=== PATIENT | female | born 1975 | race Caucasian/White ===

== ENCOUNTER 2019-09-19 10:04 | Day surgery (SDC) | payer OTHER ==
[2019-09-19] MEDS ORDERED: Ringers Lactate 1,000 ML IV ONE (10:22)
[2019-09-19] MEDS ORDERED: CEFAZOLIN/SWI 1gm 1 GM/10 ML SYR ONE (10:22)
[2019-09-19 10:27] LABS: Absolute Lymphocytes (CBC) 1.5 K/uL (0.7-4.9); Basophils % 1.8 % (0-1.3); MPV 7.9 fL (7.6-11.3); RBC Red Blood Cell Count 4.62 M/uL (3.86-4.86)
--- NOTE | 2019-09-19 10:40 | RAD REPORT ---
EXAM DESCRIPTION: RAD - Chest Single View - 09/19/2019 10:28 am CLINICAL HISTORY: PRE-OP THIS A.M., pending neck mass removal COMPARISON: September 2016 TECHNIQUE: AP portable chest image was obtained 09/19/2019 10:28 am . FINDINGS: Lung leiva are clear. Old shunt tubing overlies the right side of the chest. Heart and va sculature are normal. No measurable pleural effusion and no pneumothorax. No acute bony abnormality s een. No acute aortic findings suspected. IMPRESSION: No acute cardiopulmonary process. No significant change from comparison.
[2019-09-19 10:46] LABS: Potassium 3.6 mmol/L (3.5-5.1)
[2019-09-19] MEDS ORDERED: propofoL 200 MG/20 ML VIAL IV ONE (11:25)
[2019-09-19] MEDS ORDERED: LIDOCAINE 2% MPF 5 ML VIAL ONE (11:26)
[2019-09-19] MEDS ORDERED: FENTANYL CITR 100 MCG/2 ML ONE (11:26)
[2019-09-19] MEDS ORDERED: MIDAZOLAM HCL 2 MG/2 ML INJ ONE (11:26)
[2019-09-19] MEDS ORDERED: ONDANSETRON 4 MG/2 ML VIAL ONE (11:27)
[2019-09-19] MEDS ORDERED: KETOROLAC 30 MG/ML INJ ONE (12:11)
[2019-09-19 12:13] LABS: Anisocytosis 1+; Blood Morphology Comment NOTED (NOT SEEN); Hypochromasia 1+; Platelet Estimate ADEQ; Urine White Blood Cell Casts OK
[2019-09-19] MEDS ORDERED: EPHEDRINE SULF 50 MG/ML VIAL ONE (12:13)
[2019-09-19 13:25] VITALS: TEMP 97.1
[2019-09-19 13:46] VITALS: BP 117/69; O2SAT 98
--- NOTE | 2019-09-19 18:14 | EKG ---
Test Date: 2019-09-19 Test Time: 10:15:17 Field Instructor: MARISOL MEASUREMENT RESULTS: Intervals: Rate: 64 HI: 116 QRSD: 92 QT: 390 QTc: 402 Tie Siding: P: 62 HI: 116 QRS: 65 T: 46 INTERPRETIVE STATEMENTS: Normal sinus rhythm Normal ECG No previous ECG available for comparison Electronically Signed On 09-19-19 18:12:27 CDT by Jn Carrizales
--- NOTE | 2019-09-19 23:46 | OP ---
Date of Procedure: 09/19/2019 Surgeon: Cuate Avalos MD Preoperative Diagnosis: Inflamed mass, right neck. Postoperative Diagnosis: Inflamed mass, right neck. Procedure: Wide excision of right neck mass 8 x 4 cm with layered closure. Estimated Blood Loss: Minimal. Specimen: Culture and sensitivity of right neck mass, likely sebaceous cyst. Findings: As above. Anesthesia: General. Complications: None. Disposition: Patient tolerated the procedure in stable condition, taken to Recovery in good general condition. Procedure In Detail: Patient was brought to the OR and placed in supine position. General anesthesi a was begun. Patient placed in the left lateral position, prepped and draped in usual sterile fashio n. Marcaine 0.5% was infiltrated locally for postop pain control. 15 blade was used to make an 8 x 4 cm to excise this 3.5 cm raised inflamed red mass completely taken out in 1 piece and it opened at the table. Cultures done of the pus inside. Wound irrigated. Bleeding controlled with cautery. Fl aps created and quarter-inch Tree drain placed and secured with 3-0 nylon and 2-0 chromic used to approximate the subcutaneous tissue and 3-0 nylon used to loosely close the skin. Sterile dressing a pplied. Patient was awakened and taken to Recovery in good general condition. Discharge Note: Patient will go to day surgery and home when stable. Disposition: Home. Condition: Stable. Discharge Instructions: Resume home medications and diet. Activity as tolerated. No heavy lifting. Remove outer dressing in 2 days. Shower. Keep wound clean and dry. Dry gauze to wound daily. Fo llow up in my office in a week. Call for appointment. Tylenol No. 3 one tablet p.o. q.4 p.r.n. pain , Cipro 500 mg p.o. q.12. /MODL Voice ID: [id number] Report ID: [id number]
== END 2019-09-19 14:18 | disposition home or self-care (01) ==
LOC: OR 10:04
PROVIDERS: ATTEND Surgery
PROC: 0HB4XZZ Excision of Neck Skin, External Approach (ICD-10-PCS; principal; 2019-09-19 12:15)
DX: L72.0 Epidermal cyst (principal); Z11.59 Encounter for screening for other viral diseases
CPT/HCPCS: 93005; 87070; 85025; 80048; 36415; 87205; 81025; 88304; 87075; 71045; 11426; 12044; U0002; J2704; J2250; J3010; J0690; J7120; J2405; 88305

== ENCOUNTER 2019-11-29 11:27 | Emergency (ER) | payer OTHER ==
[2019-11-29] MEDS ORDERED: NA CHLORIDE 0.9% 500 ML ONE (12:21)
[2019-11-29 12:22] LABS: Absolute Lymphocytes (CBC) 1.5 K/uL (0.7-4.9); Basophils % 0.7 % (0-1.3); Hematocrit 30.9 % (36.0-45.0); Lymphocytes % 23.3 % (15.3-44.8); MPV 8.4 fL (7.6-11.3); RBC Red Blood Cell Count 4.35 M/uL (3.86-4.86)
[2019-11-29 12:46] LABS: ALT/SGPT 14 U/L (12-78); AST/SGOT 13 U/L (15-37); Albumin 3.5 g/dL (3.4-5.0); Alkaline Phosphatase 56 U/L (45-117); BUN Blood Urea Nitrogen 9 mg/dL (7-18); Bicarbonate 28 mmol/L (21-32); Bilirubin Direct < 0.1 mg/dL (0-0.2); Bilirubin Total 0.2 mg/dL (0.2-1.0); Glucose Level 88 mg/dL (74-106); Magnesium 2.2 mg/dL (1.8-2.4); NT PRO-BNP 105 pg/mL (<125); Potassium 4.2 mmol/L (3.5-5.1); Protein, Total 7.2 g/dL (6.4-8.2); Sodium Level 141 mmol/L (136-145); Troponin (Emerg Dept Use Only) < 0.02 ng/mL (0.0-0.045)
--- NOTE | 2019-11-29 12:47 | RAD REPORT ---
EXAM DESCRIPTION: CT - CTHCSPWOC - 11/29/2019 12:22 pm CLINICAL HISTORY: Trauma, head and neck injury. PAIN COMPARISON: No comparisons TECHNIQUE: Axial 5 mm thick images of the head were obtained. Axial 2 mm thick images of the cervical spine were obtained with sagittal and coronal reconstruction images generated and reviewed. All CT scans are performed using dose optimization technique as appropriate and may include automated exposure control or mA/KV adjustment according to patient size. FINDINGS: CT HEAD WITHOUT CONTRAST: No acute hemorrhage, hydrocephalus or extra-axial collection is identified.Mild generalized brain atr ophy is seen with areas gliosis in the right frontal lobe as well as the right temporal region.No are as of brain edema or midline shift. Ventriculostomy shunt tubing is is present both frontal regions, although neither shunt tube is seen to terminate in the ventricular system. The paranasal sinuses and mastoids are clear.The calvarium is intact. CT CERVICAL SPINE WITHOUT CONTRAST: No fracture or subluxation.Prominent degenerative changes seen mid and lower cervical spine, most not able at C4-5.No prevertebral soft tissues swelling is identified. IMPRESSION: No acute intracranial or cervical spine findings.
--- NOTE | 2019-11-29 12:50 | RAD REPORT ---
EXAM DESCRIPTION: RAD - Chest Single View - 11/29/2019 12:30 pm CLINICAL HISTORY: COUGH Chest pain. COMPARISON: Chest Single View dated 09/19/2019; Chest Pa And Lat (2 Views) dated 09/28/2016 FINDINGS: Portable technique limits examination quality. The lungs are grossly clear. The heart is normal in size. No displaced fractures.Right-sided shunt tu jessica is present. IMPRESSION: No acute intrathoracic process suspected.
[2019-11-29 13:08] LABS: Urine Blood TRACE (NEG); Urine Glucose NEGATIVE (NEG); Urine Protein NEGATIVE (NEG); Urine pH 7.5 (5.0-7.0)
[2019-11-29 13:10] LABS: Urine Bacteria NONE SEEN /HPF (<20); Urine Culture Reflex Order NOT NEEDED; Urine RBC <5 /HPF (NONE SEEN)
--- NOTE | 2019-11-29 13:53 | ER ---
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 Coronavirus screen: At this time, the client does not indicate any symptoms associated with coronavirus-19. Ebola Screen: Patient negative for fever greater than or equal to 101.5 degrees Fahrenheit, and additional compatible Ebola Virus Disease symptoms Patient denies exposure to infectious person. Patient denies travel to an Ebola-affected area in the 21 days before illness onset. No symptoms or risks identified at this time. Initial Sepsis Screen: Does the patient meet any 2 criteria? No. Patient's initial sepsis screen is negative. Does the patient have a suspected source of infection? No. Patient's initial sepsis screen is negative. Risk Assessment: Do you want to hurt yourself or someone else? Patient reports no desire to harm self or others. Onset of symptoms was November 27, 2019. 11:45 Method Of Arrival: Ambulatory iw 11:45 Acuity: KIRBY 3 iw MANAGER MEDICAID: 13:08 LMP N/A - Post-menopause ca1 Historical: - Allergies: 11:49 No Known Allergies; iw - Home Meds: 11:49 None [Active]; iw - PMHx: 11:49 None; iw - PSHx: 11:49 right arm; leg; iw - Immunization history:: Adult Immunizations. - Social history:: Smoking status: . Screenin:53 Abuse screen: Denies threats or abuse. Denies injuries from another. Nutritional ca1 screening: No deficits noted. Tuberculosis screening: No symptoms or risk factors identified. Fall Risk IV access (20 points). Assessment: 12:12 General: Appears in no apparent distress. comfortable, Behavior is calm, cooperative, ca1 appropriate for age. Pain: Complains of pain in scalp Pain radiates to chest and neck, L shoulder Pain currently is 6 out of 10 on a pain scale. Pain began 2-3 days ago. Is intermittent. Neuro: Level of Consciousness is awake, alert, obeys commands, Oriented to person, place, time, situation. Cardiovascular: Heart tones S1 S2 present Capillary refill < 3 seconds Patient's skin is warm and dry. Rhythm is sinus rhythm. Respiratory: Airway is patent Respiratory effort is even, unlabored, Respiratory pattern is regular, symmetrical, Breath sounds are clear bilaterally. GI: Abdomen is flat, non-distended, Bowel sounds present X 4 quads. Abd is soft and non tender X 4 quads. GI:. : No signs and/or symptoms were reported regarding the genitourinary system. EENT: No signs and/or symptoms were reported regarding the EENT system. Derm: Skin is intact, is healthy with good turgor, Skin is pink, warm \T\ dry. Musculoskeletal: Circulation, motion, and sensation intact. Capillary refill < 3 seconds. 12:14 Reassessment: Pt to CT via wheelchair. ca1 12:55 Reassessment: Patient appears in no apparent distress at this time. Patient and/or ca1 family updated on plan of care and expected duration. Pain level reassessed. Patient is alert, oriented x 3, equal unlabored respirations, skin warm/dry/pink. 14:16 Reassessment: Patient appears in no apparent distress at this time. Patient and/or ca1 family updated on plan of care and expected duration. Pain level reassessed. Patient is alert, oriented x 3, equal unlabored respirations, skin warm/dry/pink. Patient states feeling better. Vital Signs: 11:45 BP 145 / 89; Pulse 80; Resp 16; Temp 98.2; Pulse Ox 100% on R/A; Pain 10/10; iw 12:56 BP 143 / 89; Pulse 71; Resp 15 S; Pulse Ox 100% on R/A; ca1 14:16 BP 147 / 95; Pulse 66; Resp 20 S; Pulse Ox 100% on R/A; ca1 ED Course: 11:30 Patient arrived in ED. as 11:48 Triage completed. iw 11:49 Arm band placed on. iw 11:51 Cherry Bearden, DOLORES is Primary Nurse. ca1 11:53 Patient has correct armband on for positive identification. Placed in gown. Bed in low ca1 position. Call light in reach. Side rails up X 1. Pulse ox on. NIBP on. Warm blanket given. 11:55 Binu Menendez MD is Attending Physician. [facility] 12:07 hostel parent on. [facility] 12:07 EKG done, by ED staff, reviewed by Binu Menendez MD. [facility] 12:08 Missed attempt(s): 20 gauge in right antecubital area. Bleeding controlled, band aid ca1 applied, catheter tip intact. 12:12 Initial lab(s) drawn, by me, by medical lab specialist. Inserted saline lock: 22 gauge in left wrist, ca1 using aseptic technique. Blood collected. 12:20 CT completed. Patient tolerated procedure well. Patient moved back from CT. bq 12:22 CT Head C Spine In Process Unspecified. EDMS 12:29 XRAY Chest (1 view) In Process Unspecified. EDNE 14:28 IV discontinued, Pressure dressing applied. [facility] 14:30 No provider procedures requiring assistance completed. ca1 14:31 IV discontinued, intact, bleeding controlled, No redness/swelling at site. ca1 Administered Medications: 12:11 Drug: NS 0.9% 500 ml Route: IV; Rate: bolus; Site: left wrist; ca1 13:00 Follow up: Response: No adverse reaction; IV Status: Completed infusion; IV Intake: ca1 500ml 14:14 Drug: TORadol 30 mg Route: IVP; Site: left wrist; ca1 14:29 Follow up: Response: No adverse reaction; Pain is decreased ca1 Intake: 13:00 IV: 500ml; Total: 500ml. ca1 Outcome: 13:53 Discharge ordered by . [facility] 14:30 Discharged to home ambulatory, with family. ca1 14:30 Condition: stable 14:30 Discharge instructions given to patient, Instructed on discharge instructions, follow up and referral plans. no drinking with medication, no driving heavy equipment, medication usage, Demonstrated understanding of instructions, follow-up care, medications, Prescriptions given X 4. 14:31 Patient left the ED. ca1 Signatures: Dispatcher [employer] EDBinu Danielle MD MD cha Quilty, Betty bq Martinez, Michelle Gale RN RN Zoraida Vitale [facility] Cehrry Bearden RN RN ca1 Corrections: (The following items were deleted from the chart) 13:08 12:12 Pain: Complains of pain in scalp Pain radiates to chest and neck Pain currently ca1 is 6 out of 10 on a pain scale. Pain began 2-3 days ago. Is intermittent, ca1
--- NOTE | 2019-11-29 13:54 | EDPHYS ---
Physician Documentation [facility] Name: Aracelis Rangel Age: 44 yrs Sex: Female : 1975 Arrival Date: 11/29/2019 Time: 11:30 Bed 4 Private MD: SERGIO Physician Binu Menendez HPI: 11/28 13:48 This 44 yrs old Female presents to ER via Ambulatory with complaints of emi Headache, Neck Pain, >24Hrs Old, Chest Pain. 13:48 The patient complains of pain to the right occipital area and right base of the skull. emi The patient describes the headache as aching. MANAGER CREATIVE SERVICES: 13:08 LMP N/A - Post-menopause ca1 Historical: - Allergies: 11:49 No Known Allergies; iw - Home Meds: 11:49 None [Active]; iw - PMHx: 11:49 None; iw - PSHx: 11:49 right arm; leg; iw - Immunization history:: Adult Immunizations. - Social history:: Smoking status: . ROS: 13:49 Constitutional: Negative for fever, chills, and weight loss, Eyes: Negative for injury, emi pain, redness, and discharge, ENT: Negative for injury, pain, and discharge, Cardiovascular: Negative for chest pain, palpitations, and edema, Respiratory: Negative for shortness of breath, cough, wheezing, and pleuritic chest pain, Abdomen/GI: Negative for abdominal pain, nausea, vomiting, diarrhea, and constipation, Back: Negative for injury and pain, : Negative for injury, bleeding, discharge, and swelling, MS/Extremity: Negative for injury and deformity, Skin: Negative for injury, rash, and discoloration, Neuro: Negative for headache, weakness, numbness, tingling, and seizure, Psych: Negative for depression, anxiety, suicide ideation, homicidal ideation, and hallucinations, Allergy/Immunology: Negative for hives, rash, and allergies, Endocrine: Negative for neck swelling, polydipsia, polyuria, polyphagia, and marked weight changes, Hematologic/Lymphatic: Negative for swollen nodes, abnormal bleeding, and unusual bruising. 13:49 Neck: Positive for pain with movement, pain at rest, tenderness. Exam: 13:49 Constitutional: This is a well developed, well nourished patient who is awake, alert, emi and in no acute distress. Head/Face: Normocephalic, atraumatic. Eyes: Pupils equal round and reactive to light, extra-ocular motions intact. Lids and lashes normal. Conjunctiva and sclera are non-icteric and not injected. Cornea within normal limits. Periorbital areas with no swelling, redness, or edema. ENT: Nares patent. No nasal discharge, no septal abnormalities noted. Tympanic membranes are normal and external auditory canals are clear. Oropharynx with no redness, swelling, or masses, exudates, or evidence of obstruction, uvula midline. Mucous membranes moist. Cardiovascular: Regular rate and rhythm with a normal S1 and S2. No gallops, murmurs, or rubs. Normal PMI, no JVD. No pulse deficits. Respiratory: Lungs have equal breath sounds bilaterally, clear to auscultation and percussion. No rales, rhonchi or wheezes noted. No increased work of breathing, no retractions or nasal flaring. Abdomen/GI: Soft, non-tender, with normal bowel sounds. No distension or tympany. No guarding or rebound. No evidence of tenderness throughout. Back: No spinal tenderness. No costovertebral tenderness. Full range of motion. 13:49 Neck: External neck: is normal, no acute changes, C-spine: appears grossly normal, no acute changes, Thyroid: appears normal, Trachea: is midline with no obvious abnormalities, ROM/movement: limited range of motion, that is mild, that is moderate, when rotating to the right, with flexion, with extension, Meningeal signs: are not present, nuchal rigidity, is not appreciated. 13:49 Chest/axilla: Inspection: normal, Palpation: tenderness, that is mild, of the left supraclavicular area, left clavicle and anterior aspect of left upper chest. 13:54 ECG was reviewed by the Attending Physician. [facility] Vital Signs: 11:45 BP 145 / 89; Pulse 80; Resp 16; Temp 98.2; Pulse Ox 100% on R/A; Pain 10/10; iw 12:56 BP 143 / 89; Pulse 71; Resp 15 S; Pulse Ox 100% on R/A; ca1 14:16 BP 147 / 95; Pulse 66; Resp 20 S; Pulse Ox 100% on R/A; ca1 MDM: 11:55 Patient medically screened. [facility] 13:49 Differential diagnosis: arthritis, Cervical Disc Herniation Cervical Raiculopathy emi Degenerative Disc Disease Neck Contusion Spondylolisthesis Spondylosis torticollis. Data reviewed: vital signs, nurses notes, lab test result(s), EKG, radiologic studies, CT scan, plain films. Data interpreted: surveillance system monitor: rate is 74 beats/min, Pulse oximetry: on room air is 100 %. Test interpretation: by ED physician or midlevel provider: ECG, plain radiologic studies. 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 11/28 11:54 Order name: Urine Microscopic Only; Complete Time: 13:47 [facility] 11/28 11:57 Order name: Basic Metabolic Panel; Complete Time: 13:47 [facility] 11/28 11:57 Order name: CBC with Diff; Complete Time: 13:47 [facility] 11/28 11:57 Order name: LFT's; Complete Time: 13:47 [facility] 11/28 11:57 Order name: Magnesium; Complete Time: 13:47 [facility] 11/28 11:57 Order name: NT PRO-BNP; Complete Time: 13:47 [facility] 11/28 11:57 Order name: Troponin (emerg Dept Use Only); Complete Time: 13:47 [facility] 11/28 11:57 Order name: XRAY Chest (1 view); Complete Time: 13:47 [facility] 11/28 11:57 Order name: EKG; Complete Time: 11:58 [facility] 11/28 11:57 Order name: CT Head C Spine; Complete Time: 13:47 [facility] 11/28 12:59 Order name: Urine Dipstick--Ancillary (enter results); Complete Time: 13:47 eb 11/28 12:59 Order name: Urine --Ancillary (enter results); Complete Time: 13:47 eb 11/28 11:54 Order name: Urine Dipstick-Ancillary (obtain specimen); Complete Time: 12:56 snw 11/28 11:57 Order name: Cardiac monitoring; Complete Time: 12:07 [facility] 11/28 11:57 Order name: EKG - Nurse/Tech; Complete Time: 12:07 [facility] 11/28 11:57 Order name: IV Saline Lock; Complete Time: 12:11 [facility] 11/28 11:57 Order name: Labs collected and sent; Complete Time: 12:11 [facility] 11/28 11:57 Order name: O2 Per Protocol; Complete Time: 12:11 [facility] 11/28 11:57 Order name: O2 Sat Monitoring; Complete Time: 12:11 [facility] EC:54 Rate is 81 beats/min. Rhythm is regular. QRS [place] is Normal. AK interval is normal. QRS emi interval is normal. QT interval is normal. No Q waves. T waves are Normal. No ST changes noted. Clinical impression: Normal ECG and No evidence of ischemia. Interpreted by me. Reviewed by me. Administered Medications: 12:11 Drug: NS 0.9% 500 ml Route: IV; Rate: bolus; Site: left wrist; ca1 13:00 Follow up: Response: No adverse reaction; IV Status: Completed infusion; IV Intake: ca1 500ml 14:14 Drug: TORadol 30 mg Route: IVP; Site: left wrist; ca1 14:29 Follow up: Response: No adverse reaction; Pain is decreased ca1 Disposition: 11/29/19 13:53 Discharged to Home. Impression: Strain of muscle, fascia and tendon at neck level. - Condition is Stable. - Discharge Instructions: Muscle Strain, Cervical Sprain, [id number]-Glua, Aspirin and Your Heart. - Prescriptions for Ibuprofen 600 mg Oral Tablet - take 1 tablet by ORAL route every 6 hours As needed take with food; 20 tablet. Tylenol- Codeine #3 300-30 mg Oral Tablet - take 2 tablets by ORAL route every 6 hours As needed; 20 tablet. Medrol (Beau) 4 mg Oral Tablets, Dose Pack - take 1 tablet by ORAL route as directed - follow package instructions; 1 packet. Cyclobenzaprine 5 mg Oral Tablet - take 1 tablet by ORAL route 3 times per day As needed; 15 tablet. - Medication Reconciliation Form, Thank You Letter, Antibiotic Education, Prescription Opioid Use form. - Follow up: Private Physician; When: 2 - 3 days; Reason: Recheck today's complaints, Continuance of care, Re-evaluation by your physician. - Problem is new. - Symptoms have improved. Signatures: Dispatcher [employer] EDBinu Danielle MD MD cha Waters, Shelly, FISH RECEIVER-C FISH RECEIVER-Csnw Michelle Bartholomew RN RN iw Cherry Bearden RN RN ca1 Corrections: (The following items were deleted from the chart) 14:31 13:53 11/29/2019 13:53 Discharged to Home. Impression: Strain of muscle, fascia and ca1 tendon at neck level. Condition is Stable. Forms are Medication Reconciliation Form, Thank You Letter, Antibiotic Education, Prescription Opioid Use. Follow up: Private Physician; When: 2 - 3 days; Reason: Recheck today's complaints, Continuance of care, Re-evaluation by your physician. Problem is new. Symptoms have improved. emi
[2019-11-29] MEDS ORDERED: KETOROLAC 30 MG/ML INJ ONE (14:22)
[2019-11-30 13:22] VITALS: TEMP 98.2; O2SAT 100
[2019-11-30 13:24] VITALS: BP 147/95
--- NOTE | 2019-12-02 05:23 | EKG ---
Test Date: 2019-11-29 Test Time: 11:59:04 Receptionist/Telephone Operator: VICENTE MEASUREMENT RESULTS: Intervals: Rate: 81 AR: 140 QRSD: 84 QT: 364 QTc: 422 Golden: P: 61 AR: 140 QRS: 40 T: 43 INTERPRETIVE STATEMENTS: Normal sinus rhythm Normal ECG Compared to ECG 09/19/2019 10:15:17 No significant changes Electronically Signed On 12-02-19 05:20:48 CDT by Jn Carrizales
== END 2019-11-29 14:31 | disposition home or self-care (01) ==
LOC: ER 11:27
DX: S16.1XXA Strain of muscle, fascia and tendon at neck level, initial encounter (principal)
CPT/HCPCS: 96361; 93005; 85025; 80048; 36415; 83735; 81025; 80076; 84484; 83880; 70450; 72125; 71045; 96374; 99285; J7040; 81003; 81015

== ENCOUNTER 2020-07-29 06:16 | Day surgery (SDC) | payer BC ==
[2020-07-28 16:37] LABS: Absolute Lymphocytes (CBC) 1.7 K/uL (0.7-4.9); Basophils % 0.7 % (0-1.3); Hematocrit 29.7 % (36.0-45.0); Lymphocytes % 28.5 % (15.3-44.8); MPV 8.2 fL (7.6-11.3); RBC Red Blood Cell Count 4.38 M/uL (3.86-4.86)
[2020-07-28 16:46] LABS: Urine Appearance CLEAR (Clear); Urine Bilirubin NEGATIVE (Negataive); Urine Blood TRACE (Negative); Urine Color YELLOW (Yellow); Urine Glucose NEGATIVE (Negative); Urine Protein NEGATIVE (Negative); Urine Specific Gravity 1.015 (1.005-1.030); Urine Urobilinogen 0.2 mg/dL (0.2-1.0)
[2020-07-28 16:53] LABS: Protime INR 0.94
[2020-07-28 16:55] LABS: Potassium 3.7 mmol/L (3.5-5.1)
[2020-07-28 17:08] LABS: Specific Gravity 1.015 (1.005-1.030)
[2020-07-28 17:11] LABS: Urine Microscopic Reflex ORDER UMIC
[2020-07-28 17:47] LABS: Anisocytosis 1+; Blood Morphology Comment NOTED (NOT SEEN); Hypochromasia 1+; Platelet Estimate ADEQ; White Blood Cell Scan OK (OK)
[2020-07-28 18:09] LABS: Urine Bacteria <20 /HPF (<20); Urine RBC <5 /HPF (NONE SEEN)
[2020-07-29] MEDS ORDERED: Ringers Lactate 1,000 ML IV ONE (07:07)
[2020-07-29] MEDS ORDERED: CEFAZOLIN/SWI 1gm 1 GM/10 ML SYR ONE (07:07)
[2020-07-29] MEDS ORDERED: NA CHLORIDE 0.9% 1,000 ML ONE (07:28)
[2020-07-29] MEDS: SILVER NITRATE 1 APPL TOP ONE ×2 (07:41→08:33)
[2020-07-29] MEDS ORDERED: propofoL 200 MG/20 ML VIAL IV ONE (07:53)
[2020-07-29] MEDS ORDERED: FENTANYL CITR 100 MCG/2 ML ONE (07:53)
[2020-07-29] MEDS ORDERED: MIDAZOLAM HCL 2 MG/2 ML INJ ONE (07:53)
[2020-07-29] MEDS ORDERED: LIDOCAINE 1% MPF 5 ML VIAL ONE (07:53)
[2020-07-29] MEDS ORDERED: KETOROLAC 30 MG/ML INJ ONE (08:34)
[2020-07-29] MEDS ORDERED: dexAMETHasone 10 MG/ML VIAL ONE (08:34)
[2020-07-29] MEDS ORDERED: ONDANSETRON 4 MG/2 ML VIAL ONE (08:43)
[2020-07-29 09:16] VITALS: O2SAT 100
[2020-07-29 10:58] VITALS: BP 111/70; TEMP 98.5
--- NOTE | 2020-07-29 13:26 | PREOPHP ---
Date of Admission: 07/29/2020 History Of Present Illness: Aracelis Rangel is a 45-year-old female with dysfunctional uterine bleeding . Endometrial biopsy had shown benign endometrium. Ultrasound demonstrated a probable fundal endome trial polyp. We will perform hysteroscopy MyoSure for removal of the polyp. After this, she could e ither be on control pills. We discussed ablation. We discussed IUD such as Mirena, Depo shots or simply waiting to seen if the MyoSure affected improvement in her periods. She knows with MyoSur e and no other medications, she will continue to have periods but maybe not as heavy if the polyp is removed. Family History: Basically noncontributory. Allergies: SHE HAS NO ALLERGIES. Past Surgical History: She has had a tubal sterilization. Medications: She has been taking control pills prior to the procedure, but this has not affect ed adequate control of her bleeding plus she has the polyp that we still need to ascertain whether it is a benign or malignant. Physical Examination: HEENT: Clear. Pupils equal, round, reactive to light and accommodation. Conjunctivae well perfused . No oral, lingual, or buccal lesions. Chest and Lungs: Clear. Heart: Without murmurs, thrills, heaves, or rubs. Breasts: Without masses. Abdomen: Soft. Uterus is upper normal size. Both adnexa clear. Extremities: Clear without edema, cyanosis, or clubbing. Psych: The patient has a flat affect. Mother has always accompanied her and is here today as well. Discussion about infection, bleeding, a nesthetic problems, failure to control the bleeding. Patient knows these not constitute all the poss ible problems that could occur during or following surgery. Even knows about blood transfusions or e guerrero hysterectomies. We will proceed with hysteroscopy, MyoSure tomorrow. Knows not to eat or drink anything after midnight luigi CROWLEY/ELENO Voice ID: [id number]
--- NOTE | 2020-07-29 19:23 | DS ---
Date of Discharge: 07/29/2020 Aracelis Rangel is a 45-year-old female, who underwent diagnostic hysteroscopy, MyoSure procedure with r emoval of numerous endometrial polyps sent to pathology of course for evaluation. Blood loss was 20 cc or less. The patient had been given a 1 g of Ancef prior to the procedure, will be observed for 1 .5 to 2 hours and then dismissed to return to my office next week for followup, to report any tempera ture elevation of 100 degrees or greater, severe pain, heavy bleeding, or any other type of abnormali ties. Depending upon the pathology report, we will either simply monitor the next few periods or put the patient back on control pills for bleeding control, Depo-Provera or even Mirena IUD. All of these have been discussed with patient and her mother. KEO/ELENO Voice ID: [id number] Report ID: [id number]
--- NOTE | 2020-07-29 19:23 | OP ---
Surgeon: Madi Romero MD Aracelis Rangel is a 45-year-old female with dysfunctional uterine bleeding. Full preoperative counseli ng concerning procedure and possible complications including infection; blood loss; anesthetic compli cations; injury to bladder, bowel, ureter; postoperative complications; clots in legs; pneumonia. Sh e knows efficacy of the procedure cannot be guaranteed. Time-out performed. General anesthesia endo tracheal intubation. A 1 g of Ancef prior to the procedure. Uterus sounded to 8.5 cm. Hysteroscopy demonstrated 2 or 3 large polyps attached to the anterior portion of the uterus about 4 cm in. Ther e was also 2 to 3 in the patient's left cornual area just where the orifice of the tube came in. Hys teroscope was removed and MyoSure instrument was placed. All polyps were removed and then general My oSure procedure performed on the entire intrauterine contents. Estimated blood loss 20 cc or less. Procedure was discontinued. Deficit was 845, well within acceptable range. The patient will be sent to the recovery room in good condition. Final Diagnoses: 1.Dysfunctional uterine bleeding. 2.Diagnostic hysteroscopy. 3.MyoSure procedure with removal of numerous endometrial polyps. KEO/ELENO Voice ID: [id number] Report ID: [id number]
== END 2020-07-29 10:48 | disposition home health service (06) ==
LOC: OR 06:16
PROVIDERS: ATTEND Specialist
PROC: 0UJD8ZZ Inspection of Uterus and Cervix, Via Natural or Artificial Opening Endoscopic (ICD-10-PCS; 2020-07-29)
PROC: 0UB97ZX Excision of Uterus, Via Natural or Artificial Opening, Diagnostic (ICD-10-PCS; principal; 2020-07-29 07:30)
DX: N93.8 Other specified abnormal uterine and vaginal bleeding (principal); N84.0 Polyp of corpus uteri; Z20.822 Contact with and (suspected) exposure to COVID-19
CPT/HCPCS: 58558; 85025; 80048; 36415; 86900; 86850; 81025; 85610; 86901; 88305; 85730; U0003; J2704; J2250; J3010; J1100; J0690; J7120; J7030; J2405; 81003; 81015